=== PATIENT | male | born 1965 | race Caucasian/White ===

== ENCOUNTER → 2021-04-01 | Outpatient (REF) ==
--- NOTE | 2021-04-01 14:24 | REP ---
INDICATION: PAIN. COMPARISON: None TECHNIQUE: Three views FINDINGS: There is a grade 2/3 L5 upon S1 spondylolisthesis with bilateral L5 spondylolysis. There is posterior disc space narrowing at L4-5 with more mild universal disc space narrowing at L1-2 through L3-4 there is universal severe L5-S1 disc space narrowing. There is mild anterior lipping seen at all levels. IMPRESSION: Chronic changes as described above. <Electronically signed by Rajiv Eldridge > 04/01/21 [id number]
== END ==
LOC: M PLAIMG 13:59
PROVIDERS: ATTEND Internal Medicine
DX: M47.816 Spondylosis without myelopathy or radiculopathy, lumbar region (principal)